=== PATIENT | female | born 1950 | race Two or more races ===

== ENCOUNTER → 2024-05-09 | Outpatient (CLI) | payer OTHER, SELFPAY ==
--- NOTE | 2024-05-09 11:30 | XR_ITS ---
Examination: Screening digital mammography, bilateral Computer aided detection 3-D breast Tomosynthesis, bilateral Date and time of exam: May 09, 2024 1109 hours Compared to mammograms dating to March 08, 2020 Indication: Screening Technique: Nonmagnified MLO, CC views of the breasts to been obtained, reconstructed from 3-D Tomosynthesis images. R2 computer aided detection program utilized for evaluation of suspicious masses and/or abnormal calcifications. 3-D Tomosynthesis images obtained. Findings: The breasts are heterogeneously dense, which may obscure small masses 2 nodules outer right breast each 7 mm partially indistinct margins, likely upper right breast on the MLO view Impression: BI-RADS Category 0: Incomplete: Need additional imaging evaluation Recommend follow-up spot tomographic views upper quadrant right breast anterior depth to assess due to nodules described above, as well as bilateral breast sonography to complete workup
== END | disposition home or self-care (01) ==
LOC: CDIM 11:00
PROVIDERS: PCP Nurse Practitioner Family; Referring Provider Nurse Practitioner Family; Visit Provider Nurse Practitioner Family
DX: Z12.31 Encounter for screening mammogram for malignant neoplasm of breast (principal); N63.10 Unspecified lump in the right breast, unspecified quadrant
CPT/HCPCS: 77063; 77067

== ENCOUNTER → 2024-08-26 | Outpatient (CLI) | payer OTHER, SELFPAY ==
--- NOTE | 2024-08-26 13:00 | XR_ITS ---
Examination: Breast ultrasound complete, bilateral Date and time of exam: August 26, 2024 1313 hours INDICATIONS: Bilateral breast sonography March 07, 2023 10:00 nodule right breast 7 mm, 12:00 nodule left breast 9 mm Technique: Real-time grayscale ultrasonographic imaging bilateral breasts, including all 4 quadrants as well as nipple retroareolar and axillary regions. Findings: Sonographic images right breast 12:00 circumscribed nodule 17 x 18 mm 10:00 circumscribed nodule 7 x 7 mm Sonographic images left breast No cystic or solid mass IMPRESSION: BI-RADS Category 3: Probably benign findings. One additional 6 month right breast sonogram follow-up is needed to document stability of solid nodules right breast described above
--- NOTE | 2024-08-26 14:00 | XR_ITS ---
Examination: Diagnostic digital mammography, unilateral, right Computer aided detection 3-D breast Tomosynthesis, unilateral Date and time of exam: August 26, 2024 1327 hours INDICATIONS: Mammogram May 09, 2024 2 nodules outer right breast Technique: Nonmagnified MLO, CC views of the right breast have been obtained, reconstructed from 3-D Tomosynthesis images. R2 computer aided detection program utilized for evaluation of suspicious masses and/or abnormal calcifications. 3-D Tomosynthesis images obtained. Findings: The breast is heterogeneously dense, which may obscure small masses Breast biopsy marker upper outer right breast 12:00 nodule right breast 13 mm Impression: BI-RADS category 3: Probably benign findings One additional 6 month right mammogram follow-up is needed to document stability of 12:00 nodule Please see the right breast sonogram report today recommending 6 month follow-up to document stability of 12:00 10:00 nodules right breast
== END | disposition home or self-care (01) ==
PROVIDERS: PCP Nurse Practitioner Family; Referring Provider Nurse Practitioner Family; Visit Provider Nurse Practitioner Family
DX: N63.15 Unspecified lump in the right breast, overlapping quadrants (principal); N63.11 Unspecified lump in the right breast, upper outer quadrant; R92.331 Mammographic heterogeneous density, right breast
CPT/HCPCS: 76641; 77061; 77065; G0279

== ENCOUNTER → 2024-09-02 | Outpatient (CLI) | payer OTHER, SELFPAY ==
--- NOTE | 2024-09-02 07:45 | XR_ITS ---
Examination: Abdomen sonogram, complete Date and time of exam: September 02, 2024 0804 hours INDICATIONS: Epigastric pain beginning 3 years ago. Technique: Multiple real-time grayscale transabdominal sonographic images of the abdomen have been obtained. Findings: Absent gallbladder Normal common bile duct 0.3 cm Pancreatic head 2.7 cm Aorta not enlarged. Liver 17.7 cm fatty infiltration Normal hepatopedal portal venous flow Patent IVC Right kidney 10.2 cm cortex 1.8 cm Left kidney 10.8 cm cortex 1.9 cm Mild renal scar formation Spleen 8.5 cm IMPRESSION: Normal common bile duct Mild to moderate hepatomegaly fatty infiltration
== END | disposition home or self-care (01) ==
LOC: CDIM 07:56
PROVIDERS: PCP Family Medicine; Referring Provider Nurse Practitioner Family; Visit Provider Nurse Practitioner Family
DX: K76.0 Fatty (change of) liver, not elsewhere classified (principal)
CPT/HCPCS: 76700

== ENCOUNTER → 2025-01-12 | Outpatient (CLI) | payer OTHER, SELFPAY ==
--- NOTE | 2025-01-12 16:00 | XR_ITS ---
Examination: MRI right ankle without contrast Date and time of exam: January,, 1744 hours INDICATIONS: Plantar ankle pain 3 years, clinical diagnosis tendinitis peroneus longus and brevis as well as flexor hallucis longus MRI ankle May 04, 2023 Technique: Multiple MRI axial and sagittal sections lumbar spine. Sagittal T2-weighted images, TR 3500, TE 118 T1 weighted transverse sections, TR 688 T8.5, T2-weighted sagittal sections T1 weighted sagittal sections TR 621, TE 30 T2 axial sections, TR 4, 190, TE 84. Findings: Linear signal in the Achilles tendon is again depicted with marked thickening of the Achilles tendon Moderate plantar fasciitis Mild sinus Tarsi syndrome No occult fracture or bone contusion or marrow edema Anterior posterior tibiofibular ligaments intact as well as talofibular ligaments, mild sprain posterior talofibular ligament Pronounced tendinitis flexor hallucis longus Extensor tendons intact IMPRESSION: Again noted intrasubstance tear of the Achilles tendon Moderate plantar fasciitis Pronounced tendinitis flexor hallucis longus
== END | disposition home or self-care (01) ==
LOC: SMRI 15:39
PROVIDERS: PCP Nurse Practitioner Family; Referring Provider Nurse Practitioner Family; Visit Provider Nurse Practitioner Family
DX: S86.011A Strain of right Achilles tendon, initial encounter (principal); X58.XXXA Exposure to other specified factors, initial encounter; M72.2 Plantar fascial fibromatosis; M77.51 Other enthesopathy of right foot and ankle
CPT/HCPCS: 73721